=== PATIENT | female | born 1990 | race Two or more races ===

== ENCOUNTER 2019-02-27 04:27 | Emergency (ER) | payer SELFPAY ==
--- NOTE | 2019-02-27 04:49 | EDM.PDOC ---
ED HPI GENERAL MEDICAL PROBLEM - General Chief Complaint: Skin Complaint Stated Complaint: PAIN, OOZING, SWELLING IN RIGHT FOOT Time Seen by Provider: 02/27/19 04:49 Source of Information: Reports: Patient - History of Present Illness INITIAL COMMENTS - FREE TEXT/NARRATIVE: HISTORY AND PHYSICAL: History of present illness: [Patient presents with swelling of right foot as well as oozing clear fluid there no blistered lesions or some mild redness on the dorsum of her foot that she is wearing flip-flop type shoes with a rubber strap that would go over the dorsum of the area of redness is similar to the distribution of the flip-flop, she generally wears leather boots however tonight for coming to the hospital she has worn the flip-flops but it does have a contact dermatitis appearance or possibly poison sarah, does complain of some itching not necessarily pain at rest however she does have pain with walking There is no warmth or fluctuance to the lesion] Review of systems: As per history of present illness and below otherwise all systems reviewed and negative. Past medical history: As per history of present illness and as reviewed below otherwise noncontributory. Surgical history: As per history of present illness and as reviewed below otherwise noncontributory. Social history: No reported history of drug or alcohol abuse. Family history: As per history of present illness and as reviewed below otherwise noncontributory. Physical exam: HEENT: Atraumatic, normocephalic, pupils reactive, negative for conjunctival pallor or scleral icterus, mucous membranes moist, throat clear, neck supple, nontender, trachea midline. Lungs: Clear to auscultation, breath sounds equal bilaterally, chest nontender. Heart: S1S2, regular, negative for clicks, rubs, or JVD. Abdomen: Soft, nondistended, nontender. Negative for masses or hepatosplenomegaly. Negative for costovertebral tenderness. Pelvis: Stable nontender. Genitourinary: Deferred. Rectal: Deferred. Extremities: Atraumatic, negative for cords or calf pain. Neurovascular unremarkable. Neuro: Awake, alert, oriented. Cranial nerves II through XII unremarkable. Cerebellum unremarkable. Motor and sensory unremarkable throughout. Exam nonfocal. Diagnostics: [cBC CRP Wound culture Right foot 3 views ] Therapeutics: [Decadron 10 mg IM Benadryl 50 mg by mouth ] Keflex Impression: [Dermatitis/cellulitis ] Definitive disposition and diagnosis as appropriate pending reevaluation and review of above. both feet Pain Score (Numeric/FACES): 7 - Related Data Allergies Allergy/AdvReac Type Severity Reaction Status Date / Time No Known Allergies Allergy Verified 02/27/19 04:39 Home Meds: Home Meds . [No Known Home Meds] 02/27/19 [History] Past Medical History HEENT History: Reports: Impaired Vision, Other (See Below) Other HEENT History: wears glasses Social & Family History - Family History Family Medical History: Noncontributory - Tobacco Use Smoking Status *Q: Never Smoker - Recreational Drug Use Recreational Drug Use: No ED ROS GENERAL - Review of Systems Review Of Systems: See Below ED EXAM, SKIN/RASH Exam: See Below Course - Vital Signs Last Recorded V/S: Last Vital Signs Temp 97 F 02/27/19 04:30 Pulse 78 02/27/19 04:30 Resp 16 02/27/19 04:30 BP 132/82 02/27/19 04:30 Pulse Ox 98 02/27/19 04:30 - Orders/Labs/Meds Orders: Active Orders 24 hr Category Date Time Status C-REACTIVE PROTEIN [CHEM] Stat Lab 02/27/19 05:00 Received CULTURE WOUND [RM] Stat Lab 02/27/19 04:45 Received Labs: Laboratory Tests 02/27/19 Range/Units 05:00 WBC 6.38 (4.0-11.0) K/uL RBC 4.35 (4.30-5.90) M/uL Hgb 13.9 (12.0-16.0) g/dL Hct 42.3 (36.0-46.0) % MCV 97.2 (80.0-98.0) fL MCH 32.0 (27.0-32.0) pg MCHC 32.9 (31.0-37.0) g/dL RDW Std Deviation 45.8 (28.0-62.0) fl RDW Coeff of Darryl 13 (11.0-15.0) % Plt Count 221 (150-400) K/uL MPV 11.20 (7.40-12.00) fL Nucleated RBC % 0.0 /100WBC Nucleated RBCs # 0 K/uL Meds: Medications Discontinued Medications Generic Name Dose Route Start Last Admin Trade Name Gavin PRN Reason Stop Dose Admin Dexamethasone 10 mg 02/27/19 05:10 Dexamethasone IVPUSH 02/27/19 05:11 ONETIME ONE Diphenhydramine HCl 50 mg 02/27/19 05:11 Benadryl PO 02/27/19 05:12 ONETIME ONE Departure - Departure Time of Disposition: 05:14 Disposition: Home, Self-Care 01 Condition: Good Clinical Impression: Cellulitis, Dermatitis - Discharge Information Referrals: PCP,None [Primary Care Provider] - Forms: ED Department Discharge Additional Instructions: Medication as prescribed Return if symptoms persist or worsen spite treatment Benadryl 50 mg every 46 hours may benefit Zantac 150 milligrams twice daily may benefit Culture of some of the clear drainage is pending at this time and will take 48- 72 hours for results Follow-up with primary care in 2 weeks sooner as needed [facility] [address] [place] [id number] The following information is given to patients seen in the emergency department who are being discharged to home. This information is to outline your options for follow-up care. We provide all patients seen in our emergency department with a follow-up referral. The need for follow-up, as well as the timing and circumstances, are variable depending upon the specifics of your emergency department visit. If you don't have a primary care physician on staff, we will provide you with a referral. We always advise you to contact your personal physician following an emergency department visit to inform them of the circumstance of the visit and for follow-up with them and/or the need for any referrals to a consulting specialist. The emergency department will also refer you to a specialist when appropriate. This referral assures that you have the opportunity for follow-up care with a specialist. All of these measure are taken in an effort to provide you with optimal care, which includes your follow-up. Under all circumstances we always encourage you to contact your private physician who remains a resource for coordinating your care. When calling for follow-up care, please make the office aware that this follow-up is from your recent emergency room visit. If for any reason you are refused follow-up, please contact the [facility] emergency department at and asked to speak to the emergency department charge nurse. - My Orders Last 24 Hours: My Active Orders 02/27/19 04:45 CULTURE WOUND [RM] Stat 02/27/19 05:00 C-REACTIVE PROTEIN [CHEM] Stat - Assessment/Plan Last 24 Hours: My Active Orders 02/27/19 04:45 CULTURE WOUND [RM] Stat 02/27/19 05:00 C-REACTIVE PROTEIN [CHEM] Stat
[2019-02-27] MEDS ORDERED: Dexamethasone 10 MG/ML SDV IVPUSH ONE (05:10)
[2019-02-27] MEDS ORDERED: diphenhydrAMINE 50 MG Cap PO ONE (05:11)
--- NOTE | 2019-02-27 05:11 | CR ---
Indication: Foot pain Technique: Three views right foot Comparison: None Findings: Bones: Alignment is normal. No fractures or bone lesions. Joint spaces: Unremarkable. Soft tissues: Mild diffuse soft tissue swelling of the right foot. Impression: Mild soft tissue swelling of the right foot. No acute osseous abnormality. Dictated by Daniella Bartlett MD @ Feb 27 2019 5:08AM Signed by Dr. Daniella Bartlett @ Feb 27 2019 5:09AM
[2019-02-27] MEDS ORDERED: Dexamethasone 10 MG/ML SDV IM ONE (05:17)
== END 2019-02-27 05:40 | disposition home or self-care (01) ==
LOC: MW.ED 04:27
DX: L03.115 Cellulitis of right lower limb (principal); L30.9 Dermatitis, unspecified
CPT/HCPCS: 36415; 73630; 85027; 86140; 87070; 87077; 87186; 96372; 99285; A9270; J1100